=== PATIENT | male | born 1965 | race African-American/Black ===

== ENCOUNTER 2017-05-15 18:38 | Emergency (ER) | payer MEDICAID ==
[~2017-05-15] VITALS: Ht 193 cm; Wt 110.2 kg
[2017-05-15 18:47] VITALS: BP 136/75
== END 2017-05-15 19:03 | disposition home or self-care (01) ==
LOC: ER 18:40
DX: M54.5 Low back pain (principal); G89.29 Other chronic pain
CPT/HCPCS: 99283; A4606; Z7610

== ENCOUNTER 2017-09-28 00:05 | Emergency (ER) | payer SELFPAY ==
[~2017-09-28] VITALS: Ht 193 cm; Wt 110.2 kg
--- NOTE | 2017-09-28 00:10 | NUR ---
51 yo male, c/o palpitaitons on and off x 3 days. patient is alert and oriented x3, skin warm and dry, resp even and unlabored. patient ambulated to er bed with steady gait, awaiting orders from provider
[2017-09-28 01:05] LABS: BASOPHILS % (AUTO) 0.5 % (0.0-2.0); EOSINOPHILS # (AUTO) 0.1 /CMM (0.0-0.7); EOSINOPHILS % (AUTO) 1.3 % (0.0-6.0); HEMATOCRIT 43 % (39-51); HEMOGLOBIN 14.7 g/dL (13.5-17.5); LYMPHOCYTES # (AUTO) 2.4 /CMM (0.8-4.8); MEAN CORPUSCULAR HEMOGLOBIN 30 PG (26.0-33.0); MEAN CORPUSCULAR HGB CONC 34 g/dl (31.0-36.0); MEAN CORPUSCULAR VOLUME 88 fL (80-96); MONOCYTES # (AUTO) 0.5 /CMM (0.1-1.30); MONOCYTES % (AUTO) 6.2 % (2.0-12.0); NEUTROPHILS # (AUTO) 5.2 /CMM (1.8-8.9); PLATELET COUNT (AUTO) 248 /CMM (150-450); RDW COEFFICIENT OF VARIATION 13.3 (11.5-15.0); RED BLOOD CELL COUNT(AUTO) 4.85 MIL/uL (4.5-6.0); WHITE BLOOD COUNT (AUTO) 8.3 K/uL (4.3-11.0)
[2017-09-28 01:19] LABS: CALCIUM, SERUM 9.1 mg/dL (8.5-10.1); CARBON DIOXIDE 30 mmol/L (21-32); CHLORIDE 103 mmol/L (98-107); CREATININE 1.4 mg/dL (0.6-1.3); GLUCOSE 96 mg/dL (74-106); POTASSIUM 4.8 mmol/L (3.5-5.1); SODIUM SERUM 140 mmol/L (136-145); UREA NITROGEN, BLOOD 20 mg/dL (7-18)
[2017-09-28 01:28] LABS: TROPONIN I < 0.017 ng/mL (0.00-0.056)
[2017-09-28 01:54] VITALS: BP 144/90
--- NOTE | 2017-09-28 02:17 | NUR ---
angel luis resting in er bed, no distress noted, will continue to monitor
== END 2017-09-28 02:43 | disposition home or self-care (01) ==
LOC: ER 00:05
DX: R00.2 Palpitations (principal); G89.29 Other chronic pain; G62.9 Polyneuropathy, unspecified; Z60.2 Problems related to living alone
CPT/HCPCS: 36415; 71045-TC; 80048-TC; 84484-TC; 85025-TC; A4606; Z7610